=== PATIENT | male | born 1975 | race Caucasian/White ===

== ENCOUNTER → 2017-12-02 | Outpatient (CLI) | payer BC | END | disposition home or self-care (01) | LOC: CFH 08:19 | PROVIDERS: ATTEND Internal Medicine | DX: E83.10 Disorder of iron metabolism, unspecified (principal) | CPT/HCPCS: 76700 ==

== ENCOUNTER 2018-12-13 07:47 | Outpatient (CLI) | payer BC | END 2018-12-13 23:59 | disposition home or self-care (01) | LOC: CFH 07:47 | PROVIDERS: ATTEND Internal Medicine | DX: R79.89 Other specified abnormal findings of blood chemistry (principal); E83.119 Hemochromatosis, unspecified | CPT/HCPCS: 76700 ==